=== PATIENT | male | born 1975 | race African-American/Black ===

== ENCOUNTER 2019-04-26 19:10 | Emergency (ER) | payer OTHER ==
[~2019-04-26] VITALS: Ht 172.7 cm; Wt 77.1 kg
[~2019-04-26 19:10] MED LIST: MEDROLDOSEPACK PO; NAPROSYN500 MG PO; NORCO 5-325 TA1 EAC1 PO; ROBAXIN 750 MG750 MG PO
[2019-04-26] MEDS ORDERED: ASPIR 8181 MG PO (19:19)
[2019-04-26] MEDS ORDERED: PREDNISONE50 MG PO (19:22)
[2019-04-26] MEDS ORDERED: NORCO 5-325 TA1 EAC1 PO (19:22)
[2019-04-26] MEDS ORDERED: FLEXERIL PO (19:22)
[2019-04-26] MEDS ORDERED: LIDODERM1 EACH TRANSDERM (19:41)
[2019-04-26 19:53] VITALS: BP 133/63
== END 2019-04-26 19:52 | disposition home or self-care (01) ==
LOC: M.ERS 19:10
DX: M54.42 Lumbago with sciatica, left side (principal); F17.210 Nicotine dependence, cigarettes, uncomplicated